=== PATIENT | male | born 1985 | race Two or more races ===

== ENCOUNTER 2017-12-03 20:13 | Emergency (ER) | payer SELFPAY ==
[~2017-12-03] VITALS: Ht 160 cm; Wt 59.0 kg
[2017-12-03] MEDS ORDERED: Ketorolac 30mg Inj IM ONE (20:30)
[2017-12-03] MEDS ORDERED: IBUPROFEN600 MG ORAL (20:59)
[2017-12-03] MEDS ORDERED: NORCO 5-325 TA1 EACH ORAL (20:59)
[2017-12-03 21:20] VITALS: BP 124/78
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
--- NOTE | 2017-12-04 10:45 | Diagnostic Imaging Report ---
Indication: Pain Findings: 3 views of the right wrist were obtained. No acute fractures, malalignment, erosions or periostitis are identified. Soft tissues are unremarkable. Impression: No acute findings.
--- NOTE | 2017-12-04 10:46 | Diagnostic Imaging Report ---
Indication: Pain 3 views of the left knee were obtained. Findings: There is a fracture in the inferior pole the patella. The fracture is nondisplaced and also likely involves the lateral aspect of the patella as well. There is no malalignment. There is a small joint effusion and anterior soft tissue swelling. IMPRESSION: Acute nondisplaced fracture of the patella
== END 2017-12-03 21:44 | disposition home or self-care (01) ==
LOC: EDBD 20:13 → EMR 20:35
DX: S60.211A Contusion of right wrist, initial encounter (principal); S82.002A Unspecified fracture of left patella, initial encounter for closed fracture; V23.4XXA Motorcycle driver injured in collision with car, pick-up truck or van in traffic accident, initial encounter; Y92.9 Unspecified place or not applicable; E11.9 Type 2 diabetes mellitus without complications
CPT/HCPCS: 73110; 73562; 96372; 99284; J1885